=== PATIENT | male | born 1985 | race Caucasian/White ===

== ENCOUNTER 2017-05-28 20:32 | Emergency (ER) | payer BC ==
[2017-05-28 20:47] VITALS: BP 167/97
[2017-05-28] MEDS ORDERED: Diphtheria,Pertussis(Acell),Tetanus Vaccine 0.5 ML SDV IM ONE (21:43)
--- NOTE | 2017-05-28 21:49 | EDM.PDOC ---
ED HPI GENERAL MEDICAL PROBLEM - General Chief Complaint: Laceration Stated Complaint: finger laceration Time Seen by Provider: 05/28/17 21:00 Source of Information: Reports: Patient History Limitations: Reports: No Limitations - History of Present Illness INITIAL COMMENTS - FREE TEXT/NARRATIVE: patient is a 31-year-old male presents ED complaining of laceration to the distal tip of the left middle finger. Patient was working on his refrigerator and accidentally cut it on the sheet metal. Unclear how deep and long the incision was due to excessive bleeding. Patient states this occurred at 4:30 this afternoon. He saturated multiple dressings. He presents to the ED with concerns a bleeding not controlled. With removal of the bandage bleeding has subsided. Tetanus status is not up-to-date. He has minimal pain. He offers no additional complaints. - Related Data Allergies Allergy/AdvReac Type Severity Reaction Status Date / Time No Known Allergies Allergy Verified 05/28/17 20:44 Home Meds: Home Meds Fish Oil/Bynum-3 Fatty Acids [Fish Oil 1,000 MG] 1 gm PO DAILY 05/28/17 [History ] Multivitamin [Multivitamins] 1 tab PO DAILY 05/28/17 [History] Past Medical History HEENT History: Reports: Impaired Vision Other HEENT History: Wears glasses Respiratory History: Reports: Sleep Apnea Other Respiratory History: CPAP Other Musculoskeletal History: Spinal fusion, L4,5 S1 Social & Family History - Tobacco Use Smoking Status *Q: Current Every Day Smoker Years of Tobacco use: 18 Packs/Tins Daily: 1 - Alcohol Use Days Per Week of Alcohol Use: 7 Number of Drinks Per Day: 2 Total Drinks Per Week: 14 - Recreational Drug Use Recreational Drug Use: No ED ROS GENERAL - Review of Systems Review Of Systems: See Below Musculoskeletal: Reports: Other (finger laceration to the left distal tip of middle finger) Skin: Reports: Wound ED EXAM, SKIN/RASH Exam: See Below Exam Limited By: No Limitations General Appearance: Alert, WD/WN, No Apparent Distress Ears: Hearing Grossly Normal Nose: Normal Inspection Throat/Mouth: Normal Voice, No Airway Compromise Neck: Normal Inspection, Supple Respiratory/Chest: No Respiratory Distress, No Accessory Muscle Use Cardiovascular: Normal Peripheral Pulses, Regular Rate, Rhythm Peripheral Pulses: 2+: Radial (L) Extremities: Other (dressing applied to the distal tip of the left middle finger. With removal of dressing no bleeding present. With examination bleeding started from what appears to be a puncture site. Unable to pull the wound edges apart. Dressing applied to control bleeding. No sensory/motor deficits noted. Minimal pain present.) Neurological: Alert, Oriented, Normal Cognition, No Motor/Sensory Deficits Psychiatric: Normal Affect, Normal Mood Skin: Warm, Dry, Normal Color Course - Vital Signs Last Recorded V/S: Last Vital Signs Temp 98.9 F 05/28/17 20:44 Pulse 92 05/28/17 20:44 Resp 18 05/28/17 20:44 BP 167/97 H 05/28/17 20:44 Pulse Ox 100 05/28/17 20:44 - Orders/Labs/Meds Orders: Active Orders 24 hr Category Date Time Status Vaccines to be Administered [RC] PER UNIT ROUTINE Care 05/28/17 21:44 Active Meds: Medications Discontinued Medications Generic Name Dose Route Start Last Admin Trade Name Freq PRN Reason Stop Dose Admin Diphtheria/Tetanus/Acell Pertussis 0.5 ml 05/28/17 21:43 05/28/17 22:05 Adacel IM 05/28/17 21:44 0.5 ml .ONCE ONE Administration - Re-Assessments/Exams Free Text/Narrative Re-Assessment/Exam: With examination bleeding restarted. Dressing was applied with direct pressure that subsequently subsided the bleeding. Patient does not require sutures. Mastisol with Steri-Strips applied. Small splint was applied to protect the area from trauma that may prompt bleeding. Tetanus status updated. Patient discharged home with instructions as documented. Departure - Departure Time of Disposition: 21:49 Disposition: Home, Self-Care 01 Condition: Good Clinical Impression: Finger laceration Qualifiers: Encounter type: initial encounter Finger: middle finger Damage to nail status: without damage Foreign body presence: without foreign body Laterality: left Qualified Code(s): S61.213A - Laceration without foreign body of left middle finger without damage to nail, initial encounter - Discharge Information Instructions: Puncture Wound, [id number], Laceration Care, Adult, Easy-to- Read Referrals: [facility] PACKAGE PICK UP [Primary Care Provider] - Forms: ED Department Discharge Additional Instructions: Cleanse site twice daily with soap and water, and pat dry. Keep area clean and dry. Steri-Strips will fall off in approximately 3-5 days. If bleeding restarts utilize direct pressure to mitigate this. wound should be completely healed the next 7-10 days. Refrain from any activities that may reopen wound. return to ED for any new or worsening symptoms concerning for infection. - My Orders Last 24 Hours: My Active Orders 05/28/17 21:44 Vaccines to be Administered [RC] PER UNIT ROUTINE - Assessment/Plan Last 24 Hours: My Active Orders 05/28/17 21:44 Vaccines to be Administered [RC] PER UNIT ROUTINE
== END 2017-05-28 22:10 | disposition home or self-care (01) ==
LOC: JD.ED 20:32
DX: S61.213A Laceration without foreign body of left middle finger without damage to nail, initial encounter (principal); F17.210 Nicotine dependence, cigarettes, uncomplicated; Z23 Encounter for immunization; W26.8XXA Contact with other sharp object(s), not elsewhere classified, initial encounter
CPT/HCPCS: 90471; 90715; 99282; 99282-25